=== PATIENT | female | born 1965 | race Caucasian/White ===

== ENCOUNTER 2016-07-21 14:01 | Emergency (ER) | payer OTHER ==
[~2016-07-21] VITALS: Ht 152.4 cm; Wt 54.0 kg
[2016-07-21 14:05] VITALS: Ht 152.4 cm; Wt 54.0 kg
[2016-07-21] MEDS ORDERED: ALBUTEROL 0.083% (NEB) 2.5 MG/3 ML AMP HHN STA (14:32)
[2016-07-21 14:53] LABS: ADD SCAN DIFF NO
[2016-07-21 14:56] LABS: BASOPHIL # 0.1 10^3/ul (0.0-0.1); BASOPHILS % 0.7 % (0.0-2.0); EOSINOPHILS # 0.4 10^3/ul (0.0-0.5); EOSINOPHILS % 3.3 % (0.0-7.0); HEMATOCRIT 45.3 % (37.0-47.0); HEMOGLOBIN 14.3 g/dl (12.0-16.0); LYMPHOCYTES # 1.6 10^3/ul (0.8-2.9); LYMPHOCYTES % 14.3 % (15.0-51.0); MEAN CORPUSCULAR HEMOGLOBIN 28.4 pg (29.0-33.0); MEAN CORPUSCULAR HGB CONC 31.6 g/dl (32.0-37.0); MEAN CORPUSCULAR VOLUME 89.9 fl (82.0-101.0); MEAN PLATELET VOLUME 9.6 fl (7.4-10.4); MONOCYTE # 0.6 10^3/ul (0.3-0.9); MONOCYTES % 5.5 % (0.0-11.0); NEUTROPHIL # 8.3 10^3/ul (1.6-7.5); NEUTROPHILS % 75.9 % (39.0-77.0); PLATELET COUNT 386 10^3/UL (140-415); RED BLOOD COUNT 5.04 10^6/ul (4.20-5.40); WHITE BLOOD COUNT 10.9 10^3/ul (4.8-10.8)
[2016-07-21] MEDS ORDERED: ACETAMINOPHEN 325 MG TAB PO ONE (15:00)
[2016-07-21] MEDS ORDERED: SOD CHLORIDE 0.9% 1,000 ML IV ONE (15:00)
[2016-07-21 15:21] LABS: ANION GAP 16 (8-16); BLOOD UREA NITROGEN 8 mg/dl (7-20); CALCIUM 9.9 mg/dl (8.4-10.2); CARBON DIOXIDE 27 mmol/L (21-31); CHLORIDE 101 mmol/L (97-110); CREATININE 0.93 mg/dl (0.44-1.00); GLUCOSE 117 mg/dl (70-220); POTASSIUM 4.5 mmol/L (3.5-5.1); SODIUM 139 mmol/L (135-144)
--- NOTE | 2016-07-21 15:31 | RADRPT ---
PROCEDURE: XR Chest. CLINICAL INDICATION: Shortness of breath. TECHNIQUE: Single frontal view of the chest was obtained. COMPARISON: None FINDINGS: The right diaphragm is elevated. The soft tissues are normal.. The bony elements are normal. The heart, cardiomediastinal silhouette and hilar structures are normal. The pulmonary vasculature is no rmal. There is a left-sided aorta. No acute infiltrate is identified. The 2.5 mm calcified granulo ma is identified in the left mid lung field. The costophrenic angles are normal. IMPRESSION: 1. There is no evidence of active cardiopulmonary disease. 2. A 2.5 mm granulomas identified in the left mid lung field. No additional imaging follow-up is n eeded. RPTAT:AAJJ Physician Jan Date Time Electronically viewed and signed by Physician Jan on 07/21/2016 15:30 SARAY/
[2016-07-21 15:32] LABS: TROPONIN-I < 0.012 ng/ml (0.00-0.12)
[2016-07-21] MEDS ORDERED: ACET500C5 PO (16:10)
[2016-07-21] MEDS ORDERED: SODI126M NASAL (16:10)
[2016-07-21] MEDS ORDERED: GUAI473L22 PO (16:10)
[2016-07-21] MEDS ORDERED: LORAZEPAM 1 MG TAB PO ONE (16:30)
[2016-07-21 16:42] VITALS: BP 103/63; PULSE 95; RESP 18; TEMP 98
--- NOTE | 2016-07-21 16:56 | ERD ---
ER Documentation Chief Complaint Date/Time DATE: 07/21/16 TIME: 16:43 Chief Complaint Complains of a fever and cough x 3 days HPI 51-year-old female complaining of nonproductive cough 1 month. Patient reports in the congestion for the last 2 weeks. She has fever and chills for the past 3 days. States that she has short of breath, especially at night. Unable to sleep. Denies abdominal pain, nausea, vomiting, diarrhea. Denies chest pain. Patient is postmenopausal 3 years. ROS All systems reviewed and are negative except as per history of present illness. Medications Home Meds Active Scripts Acetaminophen* (Tylophen*) 500 Mg Capsule, 1 CAP PO Q6H Y for PAIN AND OR ELEVATED TEMP, #20 CAP Prov:LINCOLN MACHADO. TETRYL DISSOLVER OPERATOR 07/21/16 Guaifenesin-Codeine Phosphate* (Guaifenesin* AC Cough Syrup) 473 Ml Liquid, 5 ML PO Q4H Y for COUGH, #120 ML Prov:LINCOLN MACHADO. TETRYL DISSOLVER OPERATOR 07/21/16 Sodium Chloride (Saline Nasal Mist) 126 Ml Mist, 2 SPRAY NASAL Q2H Y for NASAL CONGESTION, #1 BOTTLE Prov:LINCOLN MACHADO. TETRYL DISSOLVER OPERATOR 07/21/16 Allergies Allergies: Coded Allergies: No Known Allergy (Unverified , 07/21/16) PMhx/Soc Medical and Surgical Hx: pt denies Medical Hx, pt denies Surgical Hx Hx Alcohol Use: No Hx Substance Use: No Hx Tobacco Use: No Smoking Status: Unknown if ever smoked Physical Exam Vitals Vital Signs Date Time Temp Pulse Resp B/P Pulse Ox O2 Delivery O2 Flow Rate FiO2 07/21/16 14:05 101.1 125 20 108/72 99 Physical Exam General: Well-developed, well-nourished, conscious and coherent, in no distress Skin: Warm and dry without rash, good texture and turgor Head: Normocephalic without evidence of trauma Eyes: Sclera and conjunctivae normal; pupils equal, round, and reactive to light; extraocular movements are intact Ears: Canals are patent. Tympanic membranes are clear Nose/Face: Nasal mucosa erythematous, without rhinorrhea. Mouth/throat: Mucous membranes are moist. Posterior pharynx clear without erythema or exudates Neck: Supple without meningismus or adenopathy. Carotids are equal. Trachea midline. No bruits or JVD Chest: Normal AP diameter. Good expansion without retractions. Nontender. Lungs are clear to auscultate bilaterally with good tidal volume. Patient is hyperventilating with accessory muscle use. O2 sat 99%. Nonproductive cough noted. Heart: Regular rate and rhythm. No murmur, rub, or gallops heard Abdomen: Soft and nontender without masses, guarding, or rebound. Bowel sounds are active. No hepatosplenomegaly Back: Without spinal or CVA tenderness Extremities: Full range of motion. Good strength bilaterally. No clubbing, cyanosis, or edema. Peripheral pulses are intact. Sensation intact Neuro: Alert and oriented 4, GCS 15. Cranial nerves grossly intact. Motor and sensory exams nonfocal. Moves all extremities. Speech clear. Gait normal Psych: Patient appears to be anxious. Result Diagram: 07/21/16 1446 07/21/16 1446 Results 24 hrs Laboratory Tests Test 07/21/16 14:46 White Blood Count 10.910^3/ul Red Blood Count 5.0410^6/ul Hemoglobin 14.3g/dl Hematocrit 45.3% Mean Corpuscular Volume 89.9fl Mean Corpuscular Hemoglobin 28.4pg Mean Corpuscular Hemoglobin Concent 31.6g/dl Red Cell Distribution Width 13.0% Platelet Count 71699^3/UL Mean Platelet Volume 9.6fl Neutrophils % 75.9% Lymphocytes % 14.3% Monocytes % 5.5% Eosinophils % 3.3% Basophils % 0.7% Nucleated Red Blood Cells % 0.0/100WBC Neutrophils # 8.310^3/ul Lymphocytes # 1.610^3/ul Monocytes # 0.610^3/ul Eosinophils # 0.410^3/ul Basophils # 0.110^3/ul Nucleated Red Blood Cells # 0.010^3/ul Sodium Level 139mmol/L Potassium Level 4.5mmol/L Chloride Level 101mmol/L Carbon Dioxide Level 27mmol/L Anion Gap 16 Blood Urea Nitrogen 8mg/dl Creatinine 0.93mg/dl Glucose Level 117mg/dl Lactic Acid Level 2.1mmol/L Calcium Level 9.9mg/dl Troponin I < 0.012ng/ml Current Medications Medications (Trade) Dose Ordered Sig/Eduardo Route PRN Reason Start Time Stop Time Status Last Admin Dose Admin Albuterol (Proventil 0.083% (Neb)) 2.5 mg ONCE STAT HHN 07/21/16 14:32 07/21/16 14:35 DC 07/21/16 15:20 Acetaminophen 650 mg 650 mg ONCE ONCE PO 07/21/16 15:00 07/21/16 15:01 DC 07/21/16 14:50 Sodium Chloride (NS) 1,000 ml @ 1,000 mls/hr Q1H ONCE IV 07/21/16 15:00 07/21/16 15:59 DC 07/21/16 14:50 Lorazepam (Ativan) 1 mg ONCE ONCE PO 07/21/16 16:30 07/21/16 16:31 DC 07/21/16 16:11 Procedures/[facility] Extremely anxious appearing 51-year-old female presents to ED with fever and nonproductive cough. Tylenol given to the patient in the ED for fever reduction. Patient also given 1 L normal saline bolus, nebulizer treatment with albuterol. Chest x-ray: No evidence of acute cardiopulmonary disease. A 2.5 mm granulomas identified in the left lung field. No additional follow-up is needed. EKG: Normal sinus rhythm rate 99, normal axis. No ST segment elevation or depression. No ectopic beats. No QT prolongation. No other EKG abnormalities. EKG read by Dr. Weiner. CBC: Unremarkable BMP: Unremarkable Troponin: Negative Lactic acid: 2.1, within normal limits Patient's temperature, heart rate, respiratory have been reduced after treatment in the ED. I doubt that she has sepsis. Likely her cough and fever is due to viral upper respiratory infection. Low suspicion for pneumonia. Patient also appears extremely anxious. Her apparent shortness of breath is likely due to hyperventilation secondary to anxiety. Patient was given 1 mg of Ativan p.o. in the ED. Patient appears well, stable for discharge and outpatient management. Medical decision making shared with patient and family. Education provided to patient and family. Patient and family expressed understanding of the plan. Medications on discharge: Tylenol, saline nasal spray, guaifenesin with codeine Follow-up: Primary care provider in 2-3 days or return to ED if worse. Departure Diagnosis: Primary Impression: URI (upper respiratory infection) URI type: acute nasopharyngitis (common cold) Qualified Code: J00 - Acute nasopharyngitis Additional Impression: Anxiety Condition: Stable Patient Instructions: Adult Self-Care for Colds, Anxiety Reaction [facility] Usted se vela hecho un examen mdico de control que le indica que no est en maggy condicin que requiera tratamiento urgente en el Departamento de Emergencia. Un estudio ms profundo y el tratamiento de jiang condicin pueden esperar sin ningn riesgo hasta que usted sea atendida/o en el consultorio de jiang mdico o maggy cl yvonne. Es responsabilidad suya arreglar maggy mariangel para el seguimiento del bruno. MANEJO DE CONDICIONES NO URGENTES EN EL FUTURO 1) Si usted tiene un mdico de atencin primaria: Usted debera llamar a jiang mdico de atencin primaria antes de venir al departamento de emergencia. Despus de las horas de consultorio, jiang doctor o jiang asociado/a est disponible por telfono. El mdico o enfermero de [place] en el servicio telefnico puede asesorarle por floyd medio para atender el problema, o bruno contrario se puede programar maggy mariangel. 2) Si usted no tiene un mdico de atencin primaria: Llame al mdico o clnica de referencia que aparece abajo eveline las horas de consultorio para hacer maggy mariangel para que le vean. CLINICAS: [facility] [phone] [facility] [facility] [phone] [id number] [facility]. [facility] [phone] [address] [facility]. [facility] [phone] [facility]. [place] [id number] [phone] [facility]. [phone] [address] Additional Instructions: Llame al doctor MAANA y tracy maggy MARIANGEL PARA DENTRO DE 2-3 FOFANA.Dgale a la secretaria que nosotros le instruimos hacer esta mariangel.Avise o llame si jiang condicin se empeora antes de la mariangel. Regresa aqui si peor o no mejor. LINCOLN MACHADO. LANDY Jul 21, 2016 16:53
== END 2016-07-21 16:48 | disposition home or self-care (01) ==
LOC: FTE 14:01
DX: J00 Acute nasopharyngitis [common cold] (principal); F41.9 Anxiety disorder, unspecified; R06.02 Shortness of breath
CPT/HCPCS: 36415; 71010; 80048; 83605; 84484; 85025; 93005; 94664; Z7502; Z7610